=== PATIENT | female | born 1985 | race Caucasian/White ===

== ENCOUNTER 2019-04-02 00:21 | Inpatient (IN) ==
[2019-04-02 00:40] VITALS: BMI 50.6
[2019-04-02] MEDS ORDERED: SODIUM CHLORIDE 1,000 ML IV STA (00:48)
[2019-04-02] MEDS ORDERED: XOPENEX 1.25 MG NEB STA (00:51)
[2019-04-02] MEDS ORDERED: TORADOL IVP STA (00:51)
[2019-04-02] MEDS ORDERED: DUONEB NEB STA (00:51)
[2019-04-02] MEDS ORDERED: ZOFRAN 4 MG/2 ML IVP STA (01:03)
[2019-04-02] MEDS ORDERED: MORPHINE 2 MG/ML SYRINGE IVP STA (01:22)
[2019-04-02] MEDS ORDERED: DILAUDID 1 MG/ML SYRINGE IVP STA (02:15)
--- NOTE | 2019-04-02 03:12 | CT ---
EXAM: CT angiogram chest with intravenous contrast 04/02/2019. Multi planar reformatted images obta ined. MIP and three-dimensional reconstructed images provided HISTORY: Chest pain. Dyspnea COMPARISON: 08/25/2014 FINDINGS: The heart size appears within normal limits. No pericardial effusion. There is no large embolus within the right or left mainstem bronchus. This examination is nondiagnostic distal to the main pulmonary arteries due to motion artifact. The patient is reportedly unable to hold breath for the exam. The thoracic aorta is normal in caliber. No aneurysm or dissection. Multifocal atelectasis. Consolidation is present within the medial and posterior aspect of the right lower lobe. Additional consolidation within the anterior right middle lobe. These findings may rep resent pneumonia. No pleural effusion or pneumothorax. Hepatic steatosis post cholecystectomy. IMPRESSION: 1. No large embolus within the right or left main pulmonary artery. This examination is nondiagnost ic distal to the main pulmonary arteries due to severe motion artifact. Patient reportedly unable to hold breath. 2. Multifocal atelectasis. Consolidation within the right middle and right lower lobe may represent pneumonia.
[2019-04-02] MEDS ORDERED: PHENERGAN 25 MG/ML VIAL 12.5 MG in SODIUM CHLORIDE 50 ML IV STA (03:24)
[2019-04-02] MEDS ORDERED: PHENERGAN 25 MG/ML VIAL ONE ×2 (03:26→18:06)
[2019-04-02] MEDS ORDERED: ROCEPHIN 1 GM/50 ML D5W 1 GM/50 ML BAG IV STA (03:29)
--- NOTE | 2019-04-02 03:36 | ED.PDOC ---
General ED Provider: Dr. OMAR SAUCEDA Chief Complaint: Shortness of Air Stated Complaint: im coughing and running fever and my chest hurts to cough Time Seen by Physician: 03:39 Mode of Arrival: Wheelchair Information Source: Patient Nursing and Triage Documentation Reviewed and Agree: Yes Does patient meet sepsis criteria?: No System Inflammatory Response Syndrome: Temp 101F or Greater Sepsis Protocol: For patient's 13 years and over: Temp is 96.8 and below OR 101 and greater Pulse >90 BPM Resp >20/minute Acutely Altered Mental Status Are patient's symptoms suggestive of a new infection, such as: -Pneumonia -Skin, Soft Tissue -Endocarditis -UTI -Bone, Joint Infection -Implantable Device -Acute Abdominal Infection -Wound Infection -Meningitis -Blood Stream Catheter Infection -Unknown Respiratory Complaint Exam Respiratory Complaint/Exam Onset/Duration: 2-3 days Symptoms Are: Still present Timing: Intermittent Initial Severity: Mild Current Severity: Moderate Location: Chest Character: Reports Productive cough Aggravating: Reports URI Alleviating: Reports Spontaneous resolution Associated Signs and Symptoms: Reports Dyspnea, Fever, Chills, Pleuritic chest pain, URI and Nasal congestion Home Oxygen Use: No Recent Stress Test: No Recent Echo/LV Function: No Current Antibiotic Use: No Current Asthma Medication Use: No Respiratory Distress: Mild Inadequate Respiratory Effort: No Dysphagia Present: No Stridor Present: No JVD Present: No Accessory Muscle Use: No Diminished Breath Sounds: Yes Sinus Tenderness: None Grunting Respirations: No Kussmaul Respirations: No Differential Diagnoses: Pneumonia and Pulmonary Embolism Non-Traumatic Chest Pain Syncope: EKG Performed Review of Systems Review Of Systems Constitutional: Reports Chills, Fever and Weakness Eyes: Reports No symptoms Ears, Nose, Mouth, Throat: Reports No symptoms Respiratory: Reports Cough and Short of air Cardiac: Reports Chest pain GI: Reports No symptoms : Reports No symptoms Musculoskeletal: Reports No symptoms Skin: Reports No symptoms Neurological: Reports No symptoms Endocrine: Reports No symptoms Hematologic/Lymphatic: Reports No symptoms All Other Systems: Reviewed and Negative [facility] Social History Smoking and tobacco status: Current every day smoker Female Reproductive History Menstrual Hx Hysterectomy: No Hx Tubal Ligation: No Physical Exam Physical Exam Appearance: Ill-appearing Ill-appearing: Mild Pain Distress: Mild Eyes: TISHA, EOMI and Conjunctiva clear ENT: Ears normal, Nose normal and Oropharynx normal Neck: Supple Respiratory: Breath sounds diminished, Crackles and Rhonchi Cardiovascular: RRR and Pulses normal GI/: Soft and Nontender Musculoskeletal: Normal strength Skin: Warm Neurological: Sensation intact and Motor intact Psychiatric: Affect appropriate, Mood appropriate and Anxious Interpretation Radiology Interpretation Radiology Interpretation By: Radiologist Radiology Results: Positive Exam Interpreted: CT Scan EKG Interpretation Time of EKG #1: 03:37 Rate: Tachy Rhythm: Sinus Ectopy: None [place]: NL ST Segment: Normal Interpretation: sinus tachy Physician Notification Case Discussed Physician Notified: dr miller Time of Notification: 03:38 Critical Care Note Critical Care Note Total Time (mins): 30 Course Course Hematology/Chemistry: 04/02/19 01:32 04/02/19 01:32 Orders, Labs, Meds: Lab Review 04/02/19 04/02/19 04/02/19 00:53 01:15 01:32 WBC 18.84 H RBC 5.49 H Hgb 15.9 Hct 48.3 H MCV 88.0 MCH 29.0 MCHC 32.9 RDW Coeff of Len 13.4 Plt Count 284 Immature Gran % (Auto) 0.8 Neut % (Auto) 77.2 Lymph % (Auto) 14.5 Victoria % (Auto) 7.0 Eos % (Auto) 0.2 Baso % (Auto) 0.3 Immature Gran # (Auto) 0.2 Neut # (Auto) 14.5 H Lymph # (Auto) 2.7 Victoria # (Auto) 1.3 Eos # (Auto) 0.0 Baso # (Auto) 0.1 Platelet Estimate [id number] Anisocytosis Not present RBC Morph Comment Normal morphology Puncture Site Lbrac O2 Saturation 92.0 L ABG pH 7.468 H ABG pCO2 35.2 ABG pO2 61.0 L ABG HCO3 25.5 ABG Total CO2 27 ABG Base Excess 2 Dell Test + FiO2 % 21.0 Sodium Potassium Chloride Carbon Dioxide Anion Gap BUN Creatinine Estimated GFR (MDRD) BUN/Creatinine Ratio Glucose Lactic Acid Calcium Total Bilirubin AST ALT Alkaline Phosphatase Total Creatine Kinase Troponin I Total Protein Albumin Globulin Albumin/Globulin Ratio Procalcitonin Serum , Qual Influ A Molecular Assay Negative by naat Influ B Molecular Assay Negative by naat 04/02/19 04/02/19 04/02/19 01:32 01:32 01:32 WBC RBC Hgb Hct MCV MCH MCHC RDW Coeff of Len Plt Count Immature Gran % (Auto) Neut % (Auto) Lymph % (Auto) Victoria % (Auto) Eos % (Auto) Baso % (Auto) Immature Gran # (Auto) Neut # (Auto) Lymph # (Auto) Victoria # (Auto) Eos # (Auto) Baso # (Auto) Platelet Estimate Anisocytosis RBC Morph Comment Puncture Site O2 Saturation ABG pH ABG pCO2 ABG pO2 ABG HCO3 ABG Total CO2 ABG Base Excess Dell Test FiO2 % Sodium 137.4 Potassium 4.44 Chloride 99.1 Carbon Dioxide 29.8 Anion Gap 12.94 BUN 20.0 H Creatinine 0.80 Estimated GFR (MDRD) 82.00 BUN/Creatinine Ratio 25.00 Glucose 209.3 H Lactic Acid 1.72 Calcium 9.68 Total Bilirubin 0.74 AST 43.4 H ALT 47.1 H Alkaline Phosphatase 104.1 Total Creatine Kinase 31.8 Troponin I < 0.012 Total Protein 8.60 H Albumin 4.65 Globulin 3.95 Albumin/Globulin Ratio 1.17 Procalcitonin 0.07 Serum , Qual Influ A Molecular Assay Influ B Molecular Assay 04/02/19 01:32 WBC RBC Hgb Hct MCV MCH MCHC RDW Coeff of Eln Plt Count Immature Gran % (Auto) Neut % (Auto) Lymph % (Auto) Victoria % (Auto) Eos % (Auto) Baso % (Auto) Immature Gran # (Auto) Neut # (Auto) Lymph # (Auto) Victoria # (Auto) Eos # (Auto) Baso # (Auto) Platelet Estimate Anisocytosis RBC Morph Comment Puncture Site O2 Saturation ABG pH ABG pCO2 ABG pO2 ABG HCO3 ABG Total CO2 ABG Base Excess Dell Test FiO2 % Sodium Potassium Chloride Carbon Dioxide Anion Gap BUN Creatinine Estimated GFR (MDRD) BUN/Creatinine Ratio Glucose Lactic Acid Calcium Total Bilirubin AST ALT Alkaline Phosphatase Total Creatine Kinase Troponin I Total Protein Albumin Globulin Albumin/Globulin Ratio Procalcitonin Serum , Qual Negative Influ A Molecular Assay Influ B Molecular Assay Orders Category Date Time Status ABG DRAW REQUEST Stat CARDIO 04/02/19 01:15 Completed EKG-(ED ONLY) Stat CARDIO 04/02/19 00:49 Completed NEBULIZER TREATMENT Stat CARDIO 04/02/19 00:52 Completed NPO REMINDER: IMAGING ONCE CARE 04/02/19 00:53 Completed ED APPLY O2 .ONCE EMERGENCY 04/02/19 00:51 Active ED INSURANCE PROCESSING CLERK APPLIED .ONCE EMERGENCY 04/02/19 00:49 Active ED IV/MEDIPORT/POWERPORT .ONCE EMERGENCY 04/02/19 00:49 Active ABG Stat LAB 04/02/19 01:15 Completed BLOOD CULTURE (ED ONLY) Stat LAB 04/02/19 01:32 Received CBC W/ AUTO DIFF Stat LAB 04/02/19 01:32 Completed COMPREHENSIVE METABOLIC PANEL Stat LAB 04/02/19 01:32 Completed CREATINE KINASE Stat LAB 04/02/19 01:32 Completed FLU A/B MOLECULAR Stat LAB 04/02/19 00:53 Completed LACTIC ACID Stat LAB 04/02/19 01:32 Completed MOLECULAR GROUP A STREP Stat LAB 04/02/19 00:53 Completed PROCALCITONIN Stat LAB 04/02/19 01:32 Completed RBC MORPHOLOGY Stat LAB 04/02/19 01:32 Completed SERUM Stat LAB 04/02/19 01:32 Completed TROPONIN I Stat LAB 04/02/19 01:32 Completed 0.9 % Sodium Chloride [Saline Flush] MEDS 04/02/19 00:48 Active 1 syr IVF PRN PRN Ceftriaxone/D5w 1 gm Premix [Rocephin 1 gm/50 ml D5w] MEDS 04/02/19 03:29 Active 1 gm in 50 ml IV ONCE Hydromorphone HCl [Dilaudid 1 mg/ml Syringe] MEDS 04/02/19 02:15 Discontinued 1 mg IVP ONCE STA Ipratropium/Albuterol Neb [Duoneb] MEDS 04/02/19 00:51 Discontinued 3 ml NEB ONCE STA Ketorolac Tromethamine [Toradol] MEDS 04/02/19 00:51 Discontinued 30 mg IVP ONCE STA Levalbuterol HCl [Xopenex 1.25 mg] MEDS 04/02/19 00:51 Discontinued 1.25 mg NEB ONCE STA Morphine Sulfate [Morphine 2 mg/ml Syringe] MEDS 04/02/19 01:22 Discontinued 2 mg IVP ONCE STA Ondansetron HCl/Pf [Zofran 4 mg/2 ml] MEDS 04/02/19 01:03 Discontinued 4 mg IVP ONCE STA Promethazine HCl [Phenergan 25 mg/ml Vial] MEDS 04/02/19 03:26 Discontinued 25 mg .ROUTE .STK-MED ONE Promethazine HCl [Phenergan 25 mg/ml Vial] 12.5 mg MEDS 04/02/19 03:24 Active 0.9 % Sodium Chloride [Sodium Chloride] 50 ml IV ONCE Sodium Chloride 0.9% [Sodium Chloride] 1,000 ml MEDS 04/02/19 00:48 Active IV 100 mls/hr CT CHEST PE PROTOCOL Stat RADS 04/02/19 00:53 Completed Medications Generic Name Dose Route Start Last Admin Trade Name Freq PRN Reason Stop Dose Admin Sodium Chloride 1,000 mls @ 100 mls/hr 04/02/19 00:48 04/02/19 01:07 Sodium Chloride IV 04/02/19 10:47 100 mls/hr .Q10H STA Administration Promethazine HCl 12.5 mg/ 50.5 mls @ 75 mls/hr 04/02/19 03:24 04/02/19 03:28 Sodium Chloride IV 04/02/19 04:04 75 mls/hr ONCE STA Administration CEFTRIAXONE/D5W 1 GM PREMIX 1 gm in 50 mls @ 75 mls/hr 04/02/19 03:29 Rocephin 1 Gm/50 Ml D5w IV 04/02/19 04:08 ONCE STA Sodium Chloride 1 syr 04/02/19 00:48 04/02/19 01:07 Saline Flush IVF 1 syr PRN PRN Administration To flush IV Discontinued Medications Generic Name Dose Route Start Last Admin Trade Name Freq PRN Reason Stop Dose Admin Albuterol/Ipratropium 3 ml 04/02/19 00:51 04/02/19 01:16 Duoneb NEB 04/02/19 00:52 3 ml ONCE STA Administration Hydromorphone HCl 1 mg 04/02/19 02:15 04/02/19 02:18 Dilaudid 1 Mg/Ml Syringe IVP 04/02/19 02:16 1 mg ONCE STA Administration Ketorolac Tromethamine 30 mg 04/02/19 00:51 04/02/19 01:06 Toradol IVP 04/02/19 00:52 30 mg ONCE STA Administration Levalbuterol HCl 1.25 mg 04/02/19 00:51 04/02/19 01:41 Xopenex 1.25 Mg NEB 04/02/19 00:52 1.25 mg ONCE STA Administration Morphine Sulfate 2 mg 04/02/19 01:22 04/02/19 01:27 Morphine 2 Mg/Ml Syringe IVP 04/02/19 01:23 2 mg ONCE STA Administration Ondansetron HCl 4 mg 04/02/19 01:03 04/02/19 01:06 Zofran 4 Mg/2 Ml IVP 04/02/19 01:04 4 mg ONCE STA Administration Vital Signs: Temp Pulse Resp BP Pulse Ox 04/02/19 02:50 98.5 F 109 H 21 147/95 H 93 L 04/02/19 00:31 101.3 F H 117 H 24 186/120 H 89 L Discharge Plan Discharge Patient Disposition: ADMITTED INPATIENT Discharge Problem: Acute respiratory failure, Community acquired pneumonia Prescriptions: No Action metformin [Glucophage] 1,000 MG tablet 1,000 mg PO BID RF: 0 lisinopril 20 MG tablet 40 mg PO DAILY RF: 0 ED Provider: OMAR SAUCEDA Condition: Fair
[2019-04-02] MEDS ORDERED: PHENERGAN 25 MG/ML VIAL 12.5 MG in SODIUM CHLORIDE 50 ML IV PRN (03:48)
[2019-04-02] MEDS ORDERED: TORADOL IVP PRN (03:50)
[2019-04-02] MEDS ORDERED: NORCO 7.5-325 PO PRN (03:51)
[2019-04-02] MEDS ORDERED: TYLENOL PO PRN (03:56)
[2019-04-02] MEDS: ALBUTEROL 0.083% NEB NEB SCH ×3 (05:30→17:54)
[2019-04-02] MEDS: HUMULIN R SUBCUT PRN ×3 (06:21→20:17)
[2019-04-02] MEDS ORDERED: ZESTRIL PO SCH (09:00)
[2019-04-02] MEDS: ZESTRIL PO SCH (09:38)
[2019-04-02] MEDS: ZITHROMAX 500 MG in SODIUM CHLORIDE 250 ML IV SCH (09:39)
[2019-04-02] MEDS: NICODERM 21 MG TD SCH (09:39)
--- NOTE | 2019-04-02 09:55 | DI ---
Exam: Single view of the chest. Comparison: CT performed 04/02/2019. For exam: Pneumonia. FINDINGS: No pneumothorax or pleural effusion. There are patchy airspace opacities in the lung base s. Cardiac silhouette appears within normal limits. Impression: Patchy airspace opacities lung bases likely atelectasis/pneumonia
[2019-04-02] MEDS: SODIUM CHLORIDE 1,000 ML IV SCH ×2 (16:44→16:55)
[2019-04-02] MEDS ORDERED: GUAIFENESIN PO SCH (17:45)
[2019-04-02] MEDS: MUCOMYST 20% NEB NEB SCH (17:53)
[2019-04-02] MEDS: DECADRON 4 MG/ML SDV IM SCH (18:04)
[2019-04-02] MEDS: MUCINEX PO SCH ×2 (18:04→20:17)
[2019-04-02] MEDS: LOVENOX SUBCUT SCH (20:16)
[2019-04-02] MEDS: MAXIPIME 2 GM/50 ML D5W 2 GM/50 ML BAG IV SCH (20:21)
[2019-04-02] MEDS ORDERED: ROCEPHIN 2 GM/50 ML D5W 2 GM/50 ML BAG IV SCH ×2 (21:00)
[2019-04-02] MEDS ORDERED: ROCEPHIN 1 GM/50 ML D5W 1 GM/50 ML BAG IV SCH (21:00)
[2019-04-02] MEDS: OXYCODONE PO PRN (21:32)
[2019-04-03] MEDS: ALBUTEROL 0.083% NEB NEB SCH ×5 (00:34→23:33)
[2019-04-03] MEDS: MUCOMYST 20% NEB NEB SCH ×2 (05:06→17:46)
[2019-04-03] MEDS: MAXIPIME 2 GM/50 ML D5W 2 GM/50 ML BAG IV SCH ×3 (05:53→21:17)
[2019-04-03] MEDS: MUCINEX PO SCH ×2 (08:42→21:17)
[2019-04-03] MEDS: ZESTRIL PO SCH (08:43)
[2019-04-03] MEDS: DECADRON 4 MG/ML SDV IM SCH (08:44)
[2019-04-03] MEDS: SODIUM CHLORIDE 1,000 ML IV SCH (08:44)
[2019-04-03] MEDS: NICODERM 21 MG TD SCH (08:45)
[2019-04-03] MEDS: ZITHROMAX 500 MG in SODIUM CHLORIDE 250 ML IV SCH (08:46)
[2019-04-03] MEDS: LOVENOX SUBCUT SCH (08:47)
[2019-04-03] MEDS: HUMULIN R SUBCUT PRN ×3 (13:27→21:17)
[2019-04-04] MEDS: SODIUM CHLORIDE 1,000 ML IV SCH (01:14)
[2019-04-04] MEDS: ALBUTEROL 0.083% NEB NEB SCH ×2 (04:40→11:12)
[2019-04-04] MEDS: MUCOMYST 20% NEB NEB SCH (04:40)
[2019-04-04] MEDS: MAXIPIME 2 GM/50 ML D5W 2 GM/50 ML BAG IV SCH ×2 (05:31→12:58)
[2019-04-04] MEDS: OXYCODONE PO PRN (05:35)
[2019-04-04] MEDS: HUMULIN R SUBCUT PRN ×2 (07:13→11:04)
[2019-04-04] MEDS ORDERED: NORVASC PO STA (08:22)
[2019-04-04] MEDS ORDERED: HYDROCHLOROTHIAZIDE PO ONE (08:24)
[2019-04-04] MEDS: ZITHROMAX 500 MG in SODIUM CHLORIDE 250 ML IV SCH (08:44)
[2019-04-04] MEDS: LOVENOX SUBCUT SCH (09:37)
[2019-04-04] MEDS: MUCINEX PO SCH (09:39)
[2019-04-04] MEDS: ZESTRIL PO SCH (09:41)
[2019-04-04] MEDS: NICODERM 21 MG TD SCH (09:46)
[2019-04-04] MEDS: GLUCOPHAGE PO SCH ×2 (10:55→11:00)
--- NOTE | 2019-04-04 11:29 | ECHO2D ---
Date of Exam: 04/03/19 Ordering Physician: DR. VIOLET GARCIA Room #: 121 Reason for Echo: SOB, HYPERTENSION, DM2 M-Mode Normal Adult Results LV Dimensions Normal Adult Results AoV Opening excursions >1.6 >1.6 LVEDD-base- 3.5-5.8 4.2 Ao root dimensions 2.0-3.7 3.1 LVESD-base- 3.1-4.6 L. Atrium dimensions 1.9-3.8 4.3 Post. Wall thickness 0.8-1.1 1.2 IV septum (thickness) 0.7-1.2 1.2 Post. Wall excursion 0.72-1.3 NORMAL Septal motion NORMAL Systolic motion R. Ventricular cavity 1.5-2.0 NORMAL LVEF 60% 70% Paradoxical septal wall motion NORMAL 2-D : 2-D M Mode Echocardiogram was performed using apical four chamber and left parasternal long and short axis views. Mitral, tricuspid and aortic valves appear to be normal. Contractility of the left ventricle seems to be normal, so is the cavity size. ENLARGED LEFT ATRIAL CAVITY. Aortic root appears to be normal. There is no pericardial effusion. There is no thrombus noted in the left ventricle or left atrial cavity. No mitral valve prolapse noted. M-MODE: MV: NORMAL AV: NORMAL TV: NORMAL PV: CHAMBER SIZE: ENLARGED LEFT ATRIAL CAVITY WALL MOTION: NORMAL PERICARDIUM: NORMAL INTERPRETATION: 1. BORDERLINE LEFT VENTRICULAR HYPERTROPHY WITH ENLARGED LEFT ATRIAL CAVITY 2. NORMAL VALVES 3. NORMAL LEFT VENTRICULAR CONTRACTILITY MTDD
--- NOTE | 2019-04-04 14:19 | HP ---
DATE OF SERVICE: 04/02/19 CHIEF COMPLAINT: Shortness of breath. SOURCE OF HISTORY: The patient, reliability is good. HISTORY OF PRESENT ILLNESS: The patient about 2 weeks ago had sensation of fullness in her head. It was later followed by cough and continued to cough until presentation to the emergency room. The patient was hardly able to get home because of the extreme shortness of breath prompting her to come to the emergency room. She was evaluated and subsequently admitted. She had a severe hypoxemia. Dr. Olsen told about the patient and mentioned about the negative for the pulmonary emboli and no pneumonia on the CT chest with contrast. She had a negative test, urine. She also had a negative influenza A and B by nuclear amplification in the emergency room. CTA chest no pulmonary arterial thrombus emboli is identified. Lungs are clear. Fatty liver. Chest x-ray was ordered after that and I didn't know the rational. Impression: Patchy airway opacities, lung bases likely atelectasis versus pneumonia. CT did mention consolidation medial and posterior aspect of the right lower lobe consolidation with in the anterior right middle lobe. The patient was then admitted. PAST MEDICAL HISTORY/PAST SURGICAL HISTORY: This patient was admitted August 25, 2014 at this facility and was transferred to [facility] for the same problems. She was listed as having asthma while admitted at [facility] as well as pneumonia and mucus plugs with chronic obstructive lung disease as well as obstructive sleep apnea. Also has polycystic ovarian syndrome with depression plus anxiety and increasing obesity. Hypothyroidism. She does claim to have some problems with Metformin consisting of diarrhea and has 8 bowel movements a day unless she takes Lomotil or Imodium. Record however also stated that the loose bowel movement was after the cholecystectomy. She also has hypothyroidism on replacement therapy. Also had headaches. Diabetes mellitus type 2, Laparoscopic cholecystectomy. 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 She continues to smoke about a pack of cigarettes a day. MEDICATIONS: Lisinopril 40mg daily Metformin 1000mg twice a day Imodium to counter act diarrhea from the Metformin according to her. Previous records also indicated that she had diarrhea post cholecystectomy ALLERGIES: Codeine, reaction is nausea REVIEW OF SYSTEMS: CONSTITUTIONAL: The patient had no fever and chills. Fatigue because of the shortness of breath PONY RIDE OPERATOR: History of headache but no severe headaches today. No seizure disorder or syncopal episode and no ataxia. VISUAL: Negative AUDITORY SYSTEM: Negative RESPIRATORY: The patient has severe shortness of breath and experiencing pain in the lower anterior chest wall more on the right upon taking a deep breath. She had a similar episode some 4 years ago. CARDIOVASCULAR: Denies any oppression chest pain and no diaphoresis. GI: No nausea or anorexia or abdominal pain. The patient does have diarrhea, chronic prescribed Metformin by the patient. She also had some diarrhea post cholecystectomy. Metformin dose may have to be reduced and maybe Questran will be initiated because of the diarrhea post cholecystectomy. : Denies any burning on urination or frequency. MUSCULOSKELETAL: The patient does have some back pain. INTEGUMENT: Denies any rash or pruritus or ecchymosis. ENDOCRINE. The patient is diabetic with PCOS. She also has severe obesity with fatty liver. HEMATOLOGY: Denies any prolonged bleeding for spontaneous bleeding. PSYCHIATRIC: Affect appears to be normal. PHYSICAL EXAMINATION: VITAL SIGNS: Temperature 101.3, pulse 117, blood pressure 186/120, oxygen saturation 89% was 94 at the emergency room. 5'11", 363 pounds on the floor scale, 373 at the emergency room. The patient has gain approximately 60 pounds since January of 2016, 3 years ago. HEAD: Unremarkable. Scalp has no active dermatitis FACE: Symmetrical and equal with no facial weakness. No redness. The patient denies any tenderness to palpation under pressure in the frontal and maxillary sinus areas. EYE: Pupils are equal and reactive to light. Conjunctivae not pale. Sclerae not icteric. MOUTH: Unremarkable. NECK: No masses, No bruit CHEST: Symmetrical and equal and expanding well LUNGS: Breath sounds are diminished in both sides but no rales or wheezing. HEART: Audible and regular with good tones and tachycardiac ABDOMEN: Markedly protuberant, pendulous. No significant tenderness. No guarding. Bowel sounds are active. No masses are palpable. EXTERNAL GENITALIA: Not examined PELVIC/RECTAL: Not done. LOWER EXTREMITIES: Symmetrical and equal with no tenderness in the calf muscles. Anterior tibials are present and the posterior tibials are difficult to find. UPPER EXTREMITIES: Symmetrical and equal ASSESSMENT: 1. Severe hypoxemia, acute 2. History of COPD 3. History of Asthma 4. History of obstructive sleep apnea. 5. Chronic tobacco use and abuse persistent 6. Morbid obesity 7. History of hypothyroidism 8. History of PCOS 9. History of diarrhea secondary to Metformin treated with Imodium 10.History of diarrhea post cholecystectomy 11.History of hypertension 12.History of hypothyroidism 13.History of community acquired pneumonia 14.History of mucus plugs 15.Bronchitis TIME SPENT: GREATER THAN 65 MINUTES MTDD
--- NOTE | 2019-04-04 14:20 | CONS ---
DATE OF CONSULTATION: 04/02/19 REASON FOR CONSULTATION: Chest pain which is right-sided, pleuritic in type. HISTORY OF PRESENT ILLNESS: 33-year-old white female who is a smoker, morbidly obese with BMI of 50 hospitalized on 04/02/19 with cough, congestion and fever. The patient has community acquired pneumonia, respiratory failure. The patient's ABG on admission showed p02 of 61 with pc02 of 35, pH of 7.46 with 92% saturation on room air. When I examined the patient in the afternoon, the patient was not in any distress. REVIEW OF SYSTEMS: CONSTITUTIONAL: Positive for fatigue and tired feeling. No night sweats. No malaise, lethargy. No fever or chills. HEENT: Eyes: No visual changes. No eye pain. No eye discharge. ENT: No sinus drainage. No epistaxis. No sinus pain. No sore throat. No odynophagia. No ear pain. No congestion. RESPIRATORY: No cough, no congestion. Blood-tinged sputum at times with yellowish sputum most of the time lately for the past 2 to 3 days. No shortness of breath. CARDIOVASCULAR: Right-sided pleuritic type of pain when she takes a deep breath. No angina symptoms. No CHF symptoms. No palpitations. No orthopnea. GASTROINTESTINAL: No abdominal pain. No nausea or vomiting. No diarrhea or constipation. No hematemesis. No hematochezia. GENITOURINARY: No urgency. No frequency. No dysuria. No hematuria. No obstructive symptoms. No discharge. No pain. No significant abnormal bleeding. MUSCULOSKELETAL: No musculoskeletal pain. No joint swelling. NEUROLOGICAL: No headache. No neck pain. No syncope. No seizures. No dizziness. PSYCHIATRIC: Not anxious. No depression. No suicidal thoughts. No homicidal thoughts. SKIN: No rash. No lesions. No wounds. ENDOCRINE: No unexplained weight loss. No weight gain. HEMATOLOGIC/LYMPHATIC: No anemia. No purpura. No petechiae. No prolonged or excessive bleeding. No palpable lymph nodes. MEDICATIONS: (HOME) Metformin 1,000 mg p.o. b.i.d. Lisinopril 40 mg p.o. daily ALLERGIES: CODEINE PAST MEDICAL HISTORY: Diabetes mellitus Hypertension Chronic lung disease Smoker Morbid obesity PAST SURGICAL HISTORY: Hysterectomy Tubal ligation SOCIAL/PERSONAL/FAMILY HISTORY: The patient denies of taking any drugs. She is a heavy smoker, quit smoking two weeks ago. She lives by herself. Mara Terrazas is the mother. The patient had moved to [place] and just returned. She doesn't have a physician here. The patient had previous hospitalization a couple of years ago, prolonged and after that she was transferred to [place] from [facility]. PHYSICAL EXAMINATION: GENERAL: The patient is oriented to time, place and person. VITAL SIGNS: Temperature 97.6, pulse 100/min, respiratory rate 22, BP 124/77, pulse ox 90% on room air. HEENT: Head normocephalic, atraumatic. Eyes: Extraocular muscles are intact. Pupils are equal, round and reactive to light and accommodation. Ears: No lesions. Nose appeared normal. Throat: No exudate or erythema. NECK: Supple. No JVD, no carotid bruit. No lymphadenopathy or thyromegaly. LUNGS: Decreased breath sounds but clear to auscultation. No wheeze. Percussion note normal. Chest symmetrical. HEART: S1, S2, no S3. No murmurs. No cyanosis or clubbing. No ascites. Pulses: Dorsalis pedis and posterior tibial pulses +2 bilaterally. PMI not palpable on auscultation. ABDOMEN: Protuberant. Soft. Nontender. Bowel sounds active. No CVA tenderness. No mass felt. EXTREMITIES: No edema. Full range of motion of all extremities, equal. NEUROLOGIC: No focal deficit. Cranial nerves II through XII are grossly intact. No headache, no double vision or headache. SKIN: Not dry. Intact. Turgor - normal. LYMPHATIC: No palpable lymph nodes/no lymphedema. MUSCULOSKELETAL: Normal joints with no swelling. Muscle tone is normal. LABS: Hemoglobin 15.9, hematocrit 48, WBC 18,000, normal differential. Creatinine 0.8, BUN 20, potassium 4.4. Procalcitonin 0.07. Lactic acid 1.72. EKG sinus rhythm. Rate 115/min. Pulmonary disease type of pattern with P Pulmonale with borderline LVH by voltage. ASSESSMENT: 1. COMMUNITY ACQUIRED PNEUMONIA WITH RESPIRATORY FAILURE. 2. CHEST PAIN SEEMS TO BE PLEURITIC, DEEP BREATHING. 3. MORBID OBESITY. 4. HISTORY OF DIABETES MELLITUS. 5. HISTORY OF HYEPRTENSION. 6. HISTORY OF SMOKING WITH CHRONIC LUNG DISEASE. RECOMMENDATION: 1. Agree with present management with IV Rocephin, Azithromycin, nebs treatment, Toradol IV for pleuritic type of pain. The patient's telemetry shows sinus rhythm, no changes. 2. Counseling for smoking done. 3. Counseling for weight loss diet done. 4. The patient is intelligent, strongly advised to quit smoking. She is on Nicoderm patch. 5. 1 cc Decadron today and 1 cc Decadron in the morning. 6. The patient's EKG showed LVH, pulmonary disease type of pattern. Will do an echo to evaluate LV function and RV size to rule out evidence of pulmonary hypertension like paradoxical septal wall motion, et cetera. The patient also advised to have sleep study done. 7. The patient will also be put on Accu-Chek with sliding scale coverage. Condition seems to be stable. Thanks for the referral, will follow. JOANNE
[2019-04-04 14:38] VITALS: TEMP 99.3
[2019-04-04 16:56] VITALS: BP 168/98
--- NOTE | 2019-04-05 09:51 | CONS ---
DATE OF SERVICE: 04/04/19 CONSULT FOLLOWUP SUBJECTIVE: The patient says that she is feeling a lot better and breathing a lot better. REVIEW OF SYSTEMS: CONSTITUTIONAL: No night sweats. No fatigue, malaise, lethargy. No fever or chills. HEENT: Eyes: No visual changes. No eye pain. No eye discharge. ENT: No runny nose. No epistaxis. No sinus pain. No sore throat. No odynophagia. No ear pain. No congestion. RESPIRATORY: Practically no cough, no congestion. No hemoptysis. CARDIOVASCULAR: No angina symptoms. No CHF symptoms. No atypical chest pain for CAD. No palpitations. Walking around with no shortness of breath. GASTROINTESTINAL: No abdominal pain. No nausea or vomiting. No diarrhea or constipation. No hematemesis. No hematochezia. Appetite has improved. GENITOURINARY: No urgency. No frequency. No dysuria. No hematuria. No obstructive symptoms. No discharge. No pain. No significant abnormal bleeding. MUSCULOSKELETAL: No musculoskeletal pain. No joint swelling. No arthritis. NEUROLOGICAL: No headache. No neck pain. No syncope. No seizures. No dizziness. PSYCHIATRIC: Not anxious. No depression. No suicidal thoughts. No homicidal thoughts. SKIN: No rash. No lesions. No wounds. ENDOCRINE: No unexplained weight loss. No weight gain. HEMATOLOGIC/LYMPHATIC: No anemia. No purpura. No petechiae. No prolonged or excessive bleeding. No palpable lymph nodes. PHYSICAL EXAMINATION: GENERAL: The patient is oriented to time, place and person. HEENT: Head normocephalic, atraumatic. Eyes: Extraocular muscles are intact. Pupils are equal, round and reactive to light and accommodation. Ears: No lesions. Nose appeared normal. Throat: No exudate or erythema. NECK: Supple. No JVD, no carotid bruit. No lymphadenopathy or thyromegaly. LUNGS: Decreased breath sounds but clear to auscultation. Percussion note normal. Chest symmetrical. HEART: S1, S2, no S3. No murmurs. No cyanosis or clubbing. No ascites. Pulses: Dorsalis pedis and posterior tibial pulses +1 to +2 bilaterally. ABDOMEN: Soft. Nontender. Bowel sounds active. No CVA tenderness. No mass felt. EXTREMITIES: No edema. Full range of motion of all extremities, equal. NEUROLOGIC: No focal deficit. Cranial nerves II through XII are grossly intact. The patient had episode of migraine headache with elevated blood pressure. This morning the blood pressure is down to 160/100. SKIN: Not dry. Intact. Turgor - normal. LYMPHATIC: No palpable lymph nodes/no lymphedema. MUSCULOSKELETAL: Normal joints with no swelling. Muscle tone is normal. ASSESSMENT: 1. Pleuritic type of pain which has completely resolved 2. Respiratory failure has resolved with the blood gasses with remarkable improvement today with pO2 is 80's and PCO2 35, pH 7.41 with saturation 97% on room air. 3. Pneumonia seems to have clinically resolved RECOMMENDATIONS: 1. We will given Norvasc 5mg now along with hydrochlorothiazide 2. We will give her a dose of Lisinopril 40mg which hasn't been given this morning. 3. We will monitor the blood pressure 4. Strongly advised to lose weight. The patient is morbidly obese. 5. Risk factors for coronary artery disease discussed and how to modify them 6. Echo report again discussed with LVH and enlarged LA cavity. Unfavorable finding but the patient considering her age bariatric referral advised. She declined. 7. Also advised sleep study which she declined. The patient's condition is stable. I will sign out of the case. JOANNE
--- NOTE | 2019-04-05 09:52 | CONS ---
I have seen this patient nearly 4-5 times. Initial consult level 5. One consult note the followup was extensive the rest of them intermediate. JOANNE
--- NOTE | 2019-04-05 13:30 | CONS ---
DATE OF SERVICE: 04/03/19 CONSULT FOLLOWUP SUBJECTIVE: 33 year old white female hospitalized with respiration failure and community acquired pneumonia. REVIEW OF SYSTEMS: CONSTITUTIONAL: No night sweats. No fatigue, malaise, lethargy. No fever or chills. Feels a lot better. HEENT: Eyes: No visual changes. No eye pain. No eye discharge. ENT: No runny nose. No epistaxis. No sinus pain. No sore throat. No odynophagia. No ear pain. No congestion. RESPIRATORY: Mild cough, no congestion. No hemoptysis. The patient is breathing a lot better. She says that she is getting a lot air in the lungs now. CARDIOVASCULAR: No angina symptoms. No CHF symptoms. Pleuritic pain has subsided. Right sided chest pain which was present with deep inspiration has resolved. No palpitations. No shortness of breath. GASTROINTESTINAL: No abdominal pain. No nausea or vomiting. No diarrhea or constipation. No hematemesis. No hematochezia. Appetite better. GENITOURINARY: No urgency. No frequency. No dysuria. No hematuria. No obstructive symptoms. No discharge. No pain. No significant abnormal bleeding. MUSCULOSKELETAL: No musculoskeletal pain. No joint swelling. No arthritis. NEUROLOGICAL: No headache. No neck pain. No syncope. No seizures. No dizziness. PSYCHIATRIC: Not anxious. No depression. No suicidal thoughts. No homicidal thoughts. SKIN: No rash. No lesions. No wounds. ENDOCRINE: No unexplained weight loss. No weight gain. HEMATOLOGIC/LYMPHATIC: No anemia. No purpura. No petechiae. No prolonged or excessive bleeding. No palpable lymph nodes. PHYSICAL EXAMINATION: VITAL SIGNS: Temperature 97.4, pulse 57, respiratory rate 18, blood pressure 158/88 and pulse ox 94% on 2 liters. HEENT: Head normocephalic, atraumatic. Eyes: Extraocular muscles are intact. Pupils are equal, round and reactive to light and accommodation. Ears: No lesions. Nose appeared normal. Throat: No exudate or erythema. NECK: Supple. No JVD, no carotid bruit. No lymphadenopathy or thyromegaly. LUNGS: Decreased breath sounds but good air entry. Percussion note normal. Chest symmetrical. HEART: S1, S2, no S3. No murmurs. No cyanosis or clubbing. No ascites. Pulses: Dorsalis pedis and posterior tibial pulses +1 to +2 bilaterally. ABDOMEN: Soft. Nontender. Bowel sounds active. No CVA tenderness. No mass felt. EXTREMITIES: No edema. Full range of motion of all extremities, equal. NEUROLOGIC: No focal deficit. Cranial nerves II through XII are grossly intact. No headache, no double vision or headache. SKIN: Not dry. Intact. Turgor - normal. LYMPHATIC: No palpable lymph nodes/no lymphedema. MUSCULOSKELETAL: Normal joints with no swelling. Muscle tone is normal. LABS: Hgb 13, hct 41, WBC 16,000 normal differential, creatinine 0.6, BUN 18, potassium 4.8 ASSESSMENT: 1. Respiratory failure seems to have resolved 2. Community acquired pneumonia seems to be resolving 3. Chronic lung disease 4. Hypertension 5. Diabetes Mellitus 6. Dyslipidemia 7. Morbid obesity RECOMMENDATIONS: 1. Counseling for smoking done 2. Counseling for weight loss done 3. Continue steroid 1cc along with antibiotics and NEBS 4. The patient is advised to be up and about 5. The patient had an echo done which showed LVH borderline with enlarged LA cavity, normal LV contractility, normal valves. All the reports discussed. The patient was advised to have sleep apnea study done. 6. Strongly advised to quit smoking 7. Bariatric referral recommended for weight loss, patient declined CONDITION: Stable. MTDD
--- NOTE | 2019-04-08 11:11 | DS ---
DATE OF SERVICE: 04/04/19 FINAL DIAGNOSES: 1. SEVERE HYPOXEMIA BUT IT WAS ACUTE WITH ACUTE RESPIRATORY FAILURE IN THE SETTING OF PNEUMONIA CONFIRMED PER CHEST X-RAY. 2. HISTORY OF COPD AND ASTHMA WELL OBSTRUCTIVE SLEEP APNEA. 3. CHRONIC TOBACCO USE AND ABUSE THAT IS PERSISTENT. 4. HYPERGLYCEMIA ON ADMISSION WITH A BLOOD SUGAR OF 555. 5. FURTHER WORKUP REVEALED A FASTING INSULIN ELEVATED AT 47.5, A C-PEPTIDE OF 9.8, HEMOGLOBIN A1C OF 10.15. THAT FASTING GLUCOSE ON ADMISSION WAS 209.3. THE FASTING GLUCOSE THAT WAS ELEVATED WAS NOT ACTUALLY FASTING, IT WAS DONE ON 01/30/19 AT 1733 HOURS AND THAT WAS 555.5. HER INSULIN ON ADMISSION THIS TIME WAS 209.3, REPEAT GLUCOSE LEVEL ON 04/03/19 REVEALED A GLUCOSE OF 250.7. AGAIN, HER A1C WAS CHECKED ON THIS ADMISSION AND IT WAS 10.15. 6. SHE DOES HAVE A HISTORY OF MORBID OBESITY. 7. HISTORY OF HYPOTHYROIDISM. 8. HISTORY OF PCOS. 9. HISTORY OF DIARRHEA SECONDARY TO METFORMIN TREATED WITH IMMODIUM. 10. HISTORY OF DIARRHEA POST CHOLECYSTECTOMY. 11. HISTORY OF HYPERTENSION. 12. HISTORY OF COMMUNITY ACQUIRED PNEUMONIA. 13. HISTORY OF MUCUS PLUG. 14. HISTORY OF BRONCHITIS. BRIEF HISTORY OF PRESENT ILLNESS/HOSPITAL COURSE: The patient had about two weeks ago fullness in her head. It was later followed by a cough and continued to cough until presentation to the emergency room. The patient was hardly able to get home because of the extreme shortness of breath prompting her to come to the Emergency Department. She was evaluated and subsequently admitted. She did have severe hypoxemia. Dr. Olsen told about the patient and mentioned about the negative for pulmonary emboli. She did have a negative influenza A and B. CT of the chest showed no pulmonary arterial thrombus emboli identified. Lungs were clear. Chest x-ray ws ordered. It did show likely atelectasis vs pneumonia. CT did mention consolidation medial and posterior aspect of the right lower lung. Consolidation within the anterior right middle lobe. The patient was then admitted for further evaluation and treatment. The patient does have a history of asthma as well as COPD and obstructive sleep apnea. She also has chronic tobacco use as well. Education has been given regarding tobacco use during this admission and also regarding her chronic restrictive lung disease. The patient did verbalize understanding of her lung disease and she was also given education regarding weight loss and how this would help not only her diabetes but also help with her lung disease. She was not very receptive regarding the education provided regarding smoking cessation and obesity. At discharge she did appear very angry and upset regarding this education. The bedside nurse at the bedside as well as myself at the bedside and Dr. Ellsworth when the patient became very angry about the education regarding obesity and smoking cessation. I did go back in a little bit later and talk to her about what medicines were going to be called in for the patient. Her blood pressure remains elevated. The most recent blood pressure was 170/124. New medicines were added by Dr. Helm including Norvasc 5 mg daily and HCTZ 12.5 mg daily as well as her regular home medicines of Glucophage 1,000 mg twice a day and Zestril 40 mg daily. A two-week supply has been sent into her pharmacy. Also discussed the chest x-ray with Dr. Ellsworth. The patient has been on Maxipime and Zithromax. Will continue with Doxycycline tablets for 10 additional days because of the findings on chest x-ray. Dr. Ellsworth also reported that the patient did spike a temperature. I did review the graphic report on 04/02/19 and the patient did have a temperature of 101.3. That is when the medications were initiated. Again, will continue Doxycycline as an outpatient. I did educate the patient on these new medicines. Also encouraged her to get a blood pressure cuff so that her blood pressure could be monitored at home. Also discussed that with her, the importance of getting the blood sugar under control in regards to her health. She verbalized understanding of this and the importance of this. She does not have a primary care provider. She says she has been looking on [employer] for insurances and when she finds and establishes with an insurance she will be able to find a primary care provider. I did ask that she followup with an appointment on Thursday and the bedside nurse will make an appointment on Thursday with us for followup appointment. Her lungs were clear at discharge, her heart a regular rate and rhythm. Dr. Helm was in to see the patient and discharge the patient in regards to her heart. Again, she will followup on Thursday. DISCHARGE MEDICATIONS: She will continue her regular home medicines but the medicines that were called in have been addressed. Those new medications were Norvasc and HCTZ. The Glucophage and the Zestril were her regular medicines and they were also called in for a two week supply. VITAL SIGNS AT DISCHARGE: Blood pressure 170/124, pulse rate 85, respiratory rate 20, temperature 99.3, 02 sat 94% on room air. She has not been wearing her oxygen. Her three-step oxygen showed 92 to 93% room air and then with exercise it was 92%. Labs and diagnostic testing have been discussed. Her labs on 04/03/19 - sodium 136.3, potassium 4.88, BUN 18.6, creatinine 0.67, A1C again was 10.15. WBC 16.68, hemoglobin 13.3, hematocrit 41.4, platelet count 265. DISCHARGE DIET: ADA strict diet. DISCHARGE ACTIVITY: She has been encouraged to gradually resume regular activity and to increase activity level. DISCHARGE INSTRUCTIONS: 1. Followup appointment will be this Thursday at the office and further orders and recommendations per Dr. Ellsworth. TIME SPENT: GREATER THAN 30 MINUTES MTDD
--- NOTE | 2019-04-12 13:54 | PN ---
DATE OF SERVICE: 04/03/19 SUBJECTIVE: 33-year-old female who was admitted because of severe hypoxemia. p02 51, oxygen saturation 88. The patient today claims that she is feeling better and her oxygen saturation went up high as high as 97 and it is 93 at time of my examination 12:25 p.m. Vital signs at 1:45 p.m. showed a blood pressure 155/98, pulse 95, respiratory rate 24, temperature 98.2, oxygen saturation 93 on 2L. The patient's medications are Humulin per protocol, Phenergan 25 mg/12.5 mg, Sodium Chloride 75 cc q.6hr p.r.n. for nausea, IV q.12hr NS, Albuterol 0.083 2.5 mg/3 cc nebulizer q.6hr, Nicoderm CQ 21 mg daily, Zithromax 500 mg intravenously daily for three days, Mucinex LA 1200 mg p.o. twice a day, Mucomyst 20% nebulizer 200 mg twice a day, Oxycodone 5 to 10 mg tablet one to two tablets p.r.n. for pain q.6hr. Lovenox 40 mg subcutaneously daily, Maxipime 2 gm IV PB q.8hr. She also received Decadron 4 mg yesterday and 4 mg today. Her CBC today showed slightly increased WBC 16,680 from admission but lower than yesterday of 18,840. The rest are unremarkable. Platelet count 205,000. Chemistry today, BUN 18.6 less than the previous, blood sugar 250.7. The previous blood sugar 250.7, AST 55.1 higher than yesterday but lower from admission. ALT highest 62.4. This patient is known to have fatty liver and the patient was advised she needs to lose weight or else. Fatty liver will continue and probably produce cirrhosis. The total protein has returned to normal 7.46, BNP normal yesterday at 62.1. Serum test was negative. Condition improved and will be improved also. The patient had an echocardiogram done by Dr. Helm and he told me that there was some enlargement of the one chamber, left atrium but not quite significant. [facility]
== END 2019-04-04 16:15 | disposition home or self-care (01) | DRG 195 ==
LOC: ED 00:31 → MEDSURG B 03:37
PROVIDERS: ADMIT General Practice; ATTEND General Practice